=== PATIENT | male | born 1945 | race Caucasian/White ===

== ENCOUNTER → 2023-08-06 08:02 | Outpatient (REF) | payer MEDICARE, OTHER, SELFPAY ==
[2023-08-06 08:56] LABS: % Basophils 0.4 % (0-2); % Eosinophils 3.4 % (0-6); % Immature Granulocytes 0.4 % (0-0.5); % Lymphocytes 17.7 % (20.5-51.1); % Monocytes 8.6 % (1.7-9.3); % Neutrophils 69.5 % (42.2-75.2); Absolute Eosinophils 0.3 10^3/uL (0-0.7); Absolute Lymphocytes 1.5 10^3/uL (1.2-3.4); Absolute Monocytes 0.7 10^3/uL (0.1-0.6); Absolute Neutrophils 5.9 10^3/uL (1.4-6.5); Hematocrit 34.8 % (39.0-52.0); Hemoglobin 10.8 g/dL (13.0-18.0); Mean Corpuscular Hgb 28.3 pg (27.0-31.0); Mean Corpuscular Volume 91.1 fL (80.0-94.0); Mean Platelet Volume 10.1 fL (7.4-10.4); Nucleated Red Blood Cells % 0 % (-); Platelet Count 264 10^3/uL (130-400); Red Blood Cell Count 3.82 10^6/uL (4.70-6.10); Red Cell Dist. Width 14.8 % (11.5-14.5); White Blood Cell Count 8.4 10^3/uL (4.8-10.8)
[2023-08-06 09:09] LABS: ALT (SGPT) 15 U/L (0-50); AST (SGOT) 22 U/L (17-59); Alkaline Phosphatase 33 U/L (38-126); Blood Urea Nitrogen 26 mg/dl (9-20); Calcium 9.3 mg/dl (8.4-10.2); Carbon Dioxide 26 mmol/L (22-30); Chloride 103 mmol/L (98-107); Creatine Phosphokinase 88 U/L (55-170); Glucose 182 mg/dl (70-99); HDL Cholesterol 44 mg/dl; LDL Cholesterol, Calculated 80 mg/dl; Magnesium 1.8 mg/dl (1.6-2.3); Potassium 5.1 mmol/L (3.5-5.1); Sodium 138 mmol/L (135-145); Total Bilirubin 0.5 mg/dl (0.2-1.3); Total Cholesterol 154 mg/dl (50-199); Total Protein 6.9 g/dl (6.3-8.2); Triglyceride 153 mg/dl (10-149); Uric Acid 6.2 mg/dl (3.5-8.5); Very Low Density Lipoprotein 30 mg/dl (0-30); eGFR 47.06
[2023-08-06 09:38] LABS: Urine Albumin 1+ (Neg - Trace); Urine Bilirubin Negative (Negative); Urine Character Clear (Clear); Urine Color Yellow; Urine Glucose Negative (Negative); Urine Ketone Negative (Negative); Urine Leukocyte Negative (Negative); Urine Nitrite Negative (Negative); Urine Occult Blood Negative (Negative); Urine Specific Gravity 1.015 (<1.030); Urine Urobilinogen Negative (Neg - 1+)
[2023-08-06 09:45] LABS: Free T4 1.15 ng/dl (0.78-2.19)
[2023-08-06 09:59] LABS: PSA, Total - Screen 2.99 ng/ml (0.0-4.0); TSH 2.02 uIU/ml (0.47-4.68)
[2023-08-06 10:35] LABS: Folate 8.6 ng/ml (2.76-20); Vitamin B12 859 pg/ml (239-931)
[2023-08-06 11:07] LABS: Erythrocyte Sed Rate 41 mm/hour (0-20)
[2023-08-06 12:07] LABS: Urine Mucus Few
[2023-08-06 12:08] LABS: Urine Red Blood Cell 0-2 /HPF (0-2); Urine White Cell 0-2 /HPF (0-5)
[2023-08-06 12:30] LABS: Microalbumin, Random Urine 27.9 mg/dl (0.6-1.7); Microalbumin/creatinine Ratio 410.9 mg/g
[2023-08-06 12:49] LABS: Glycohemoglobin (HgbA1c) 6.7 % (4.0-5.6)
[2023-08-06 14:57] LABS: Rheumatoid Agglutinin Positive (<10 IU)
[2023-08-06 16:02] LABS: Rheumatoid Agg. Semi-quant 256 IU
== END ==
LOC: REG 08:02
PROVIDERS: ATTENDING PHYSICIAN Family Medicine
DX: E78.5 Hyperlipidemia, unspecified (principal); I10 Essential (primary) hypertension; E55.9 Vitamin D deficiency, unspecified; Z12.5 Encounter for screening for malignant neoplasm of prostate; E11.42 Type 2 diabetes mellitus with diabetic polyneuropathy; E07.9 Disorder of thyroid, unspecified; M54.50 Low back pain, unspecified; G89.29 Other chronic pain; E53.8 Deficiency of other specified B group vitamins
CPT/HCPCS: 36415; 80053; 80061; 81003; 81015; 82043; 82306; 82550; 82570; 82607; 82746; 83036; 83735; 84100; 84439; 84443; 84550; 85025; 85652; 86430; 86431; G0103

== ENCOUNTER → 2023-08-09 11:40 | Outpatient (REF) | payer MEDICARE, OTHER, SELFPAY | LOC: HWRAD 11:40 | PROVIDERS: ATTENDING PHYSICIAN Family Medicine | DX: R91.8 Other nonspecific abnormal finding of lung field (principal); M54.50 Low back pain, unspecified; K59.00 Constipation, unspecified | CPT/HCPCS: 71250; 72110; 72170; 74018 ==

== ENCOUNTER → 2023-09-25 07:47 | Outpatient (REF) | payer MEDICARE, OTHER, SELFPAY ==
[2023-09-25 09:44] LABS: ALT (SGPT) 13 U/L (0-50); AST (SGOT) 21 U/L (17-59); Albumin 4.1 g/dl (3.5-5.0); Alkaline Phosphatase 31 U/L (38-126); Blood Urea Nitrogen 26 mg/dl (9-20); Calcium 9.2 mg/dl (8.4-10.2); Carbon Dioxide 27 mmol/L (22-30); Chloride 101 mmol/L (98-107); Glucose 144 mg/dl (70-99); Potassium 5.4 mmol/L (3.5-5.1); Sodium 136 mmol/L (135-145); Total Bilirubin 0.8 mg/dl (0.2-1.3); Total Protein 6.7 g/dl (6.3-8.2); eGFR 51.13
[2023-09-25 09:46] LABS: Glycohemoglobin (HgbA1c) 6.6 % (4.0-5.6)
== END ==
LOC: REG 07:47
PROVIDERS: ATTENDING PHYSICIAN Internal Medicine Endocrinology, Diabetes & Metabolism; FAMILY PHYSICIAN Family Medicine
DX: E11.9 Type 2 diabetes mellitus without complications (principal)
CPT/HCPCS: 36415; 80053; 83036

== ENCOUNTER 2023-10-04 09:48 | Emergency (ER) | payer MEDICARE, OTHER, SELFPAY ==
--- NOTE | 2023-10-04 09:59 | ED.GENMED ---
History of Present Illness
General
Chief Complaint: Fall
Source: patient
Exam Limitations: none
Time Seen by Provider: 10/04/23 09:50
History of Present Illness
History of Present Illness:
See MDM
Past History
Past History
ED Past Medical History: HTN, [place] and Other (Back pain, neck pain, sciatica)
ED Past Surgical History: Orthopedic (Excision cyst left knee) and Other (Dental implants, sinus surgery)
Social History
Tobacco: Former smoker
Alcohol: None
Drug: None
Personal:
Living: with family
Employment: Retired
Family History
Family History: Other (Noncontributory)
Phy Exam
Physical Exam
Physical Exam:
See MDM
Course
Orders/Labs/Results
Orders:
Orders
10/04/23 09:54
Humerus, Left 2 Views [CR Humerus - Left Min 2 Views*] Urgent
Comment:
Reason For Exam: fall, mid arm pain
Lumbar Spine Complete, 4 View [CR Lumbar Spine Comp Min 4 Vw*] Urgent
Comment:
Reason For Exam: fall, low back pain
10/04/23 10:25
CT Head W/o Iv Contrast Urgent
Comment:
Reason For Exam: fall hit head. no thinners.
Vital Signs
Initial and Last Documented VS:
Initial Vital Signs
Temp Pulse Resp BP Pulse Ox
97.5 F 85 16 171/85 98
10/04/23 10:00 10/04/23 10:00 10/04/23 10:00 10/04/23 10:00 10/04/23 10:00
Last Documented Vital Signs
Temp Pulse Resp BP Pulse Ox
97.5 F 84 16 148/90 98
10/04/23 10:00 10/04/23 10:35 10/04/23 10:35 10/04/23 10:35 10/04/23 10:35
MDM/Problems Addressed
Differential Diagnosis Includes:
HPI and MDM Narrative:
77-year-old male presenting for evaluation after a fall. Patient states he has a known history of gait dysfunction and has been seeing physical therapy to help strengthen his core to avoid falling backwards. Patient states he thinks he tripped and
he fell on his left side hitting his left arm and his back. He denies head injury.
On exam, patient is well-appearing nontoxic. There is a small avulsion to the lateral aspect of his left arm. No bruising noted to his lumbar back. Hips nontender. No head injury noted. Will obtain x-rays of lumbar x-ray and left humerus
Physical exam
General: Well appearing and non-toxic
HEENT: protecting airway
Neck: supple
CV: No evidence of cyanosis
Resp: No accessory muscle use
Abd: Non-distended
Extremities: No bony tenderness to bilateral hips or pelvis
Back: Mild tenderness to lumbar region
Neuro: alert
Psych: Normal affect
Skin: Small abrasion to left lateral arm
Problems Addressed including Acute and Chronic Conditions affecting care:
1. Arm and back injury status post fall
Acuity: acute
Prognosis: stable
Details: Will obtain x-rays to rule out fracture. Patient already has a known history of ambulatory dysfunction
Updates
CT head negative. X-rays negative for trauma. Will update PCP and discharge
Differential Diagnosis (but not limited to): Humeral fracture, abrasion, contusion
Testing considered: Urinalysis but denies symptoms
Drug therapy (if applicable): OTC meds, please see d/c instruction regarding Rx drugs
Amount and/or Complexity of Data Reviewed
Clinical info obtained from: Patient
External data reviewed: N/A
Labs I independently reviewed (but not limited to): N/A
Radiology: The CT scan was personally and independently reviewed. In addition, official CT report reviewed.
X-ray independently reviewed: Humerus and lumbar x-ray negative for acute fracture
Pulse Ox: not hypoxic
EKG independently reviewed: N/A
Temporary Administrative Assistant: N/A
Critical Care: N/A
Risk of Complication:
Social Determinants of health: Good social support
Discussed with other providers: N/A
Escalation of Care includes Admit/Obs: After being observed in the Emergency Department, pt stable for discharge.
Occasional wrong word or 'sound a like' substitutions may have occurred due to the inherent limitations of voice recognition software. Read the chart carefully and recognize, using context, where substitutions have occurred.
*Critical Care Note
Total Time (30-74mins, 75-104mins- exclusive of procedures): Not Applicable
ED Attending Note
-
Portions of this chart may have been created with voice recognition software.� Occasional wrong word or��sound alike� substitutions may have occurred due to the inherent limitations of voice recognition software.
Discharge Plan
Departure
Patient Disposition: Home (Routine Discharge)
Date of Disposition: 10/04/23
Time of Disposition: 11:08
Patient with high blood pressure during this ER visit?: Yes
Discharge Problem:
Fall
Instructions: BLOOD PRESSURE
Prescriptions:
No Action
tamsulosin 0.4 MG capsule
0.4 mg PO QPM
finasteride 5 MG tablet
5 mg PO QPM
eplerenone 25 MG tablet
25 mg PO Q12
insulin aspart U-100 [Novolog FlexPen U-100 Insulin] 300 UNITS/3 ML insulin pen
15 units SC 1730
Patient Comments:
with dinner
insulin aspart U-100 [Novolog FlexPen U-100 Insulin] 300 UNITS/3 ML insulin pen
10 units SC BID@0730,1230
Patient Comments:
with breakfast and lunch
insulin glargine [Lantus Solostar U-100 Insulin] 300 UNITS/3 ML insulin pen
18 units SC HS
metoprolol tartrate 50 MG tablet
50 mg PO BID
cetirizine [Zyrtec] 10 MG tablet
10 mg PO PRN PRN (Reason: allergies)
pravastatin 10 MG tablet
20 mg PO QPM
magnesium 200 mg Tablet
400 mg PO DAILY
mecobalamin (vitamin B12) [B12 Active] 1,000 mcg Tablet,Chewable
1,000 mcg PO DAILY
chlorthalidone 25 mg Tablet
25 mg PO DAILY
pantoprazole [Protonix] 40 mg Tablet,Delayed Release (Dr/Ec)
40 mg PO DAILY
ranolazine [Ranexa] 1,000 mg Tablet Extended Release 12 Hr
1,000 mg PO BID
docusate sodium [Colace] 100 mg Capsule
100 mg PO DAILY
melatonin 5 mg Tablet
5 mg PO HS PRN (Reason: insomnia)
aspirin 81 mg capsule
81 mg PO DAILY Qty: 1 0RF
Rx Instructions:
Take daily post Watchman
Eliquis 2.5 mg tablet
2.5 mg PO BID Qty: 60 5RF
Rx Instructions:
Please note lower dose!
metformin 1,000 MG tablet
1,000 mg PO BID
cholecalciferol (vitamin D3) [Vitamin D3] 25 mcg (1,000 unit) Tablet
75 mcg PO DAILY
Referrals:
Deandre Lopez DO [Family Provider] -
Activity Restrictions/Additional Instructions:
Please return for any worsening symptoms.
You may return at any time if you have further concerns.
Please follow up with your doctor at the first available appointment, preferably this week.
Thank you for choosing [facility].
Interventions
Interventions:
*Risk Screen - Suicide Last Done: 10/04/23 10:01
*General Assessment Last Done: 10/04/23 09:56
*Neglect/Abuse Screening Last Done: 10/04/23 09:56
ED- Fall Risk Assessment Last Done: 10/04/23 09:56
*ED COVID-19 Vaccine History Last Done: 10/04/23 09:56
ED-Musculoskeletal Assessment Last Done: 10/04/23 10:01
ED- Neurological Assessment Last Done: 10/04/23 10:01
ED-Skin Assessment Last Done: 10/04/23 10:01
Discharge Date and Time
Print Language: JAPANESE
[2023-10-04 10:00] VITALS: BP 171/85
[2023-10-04 10:03] VITALS: BMI 30.5
[2023-10-04 10:35] VITALS: BP 148/90
== END 2023-10-04 11:54 | disposition home or self-care (01) ==
LOC: EMR 09:48
PROVIDERS: EMERGENCY PHYSICIAN Student in an Organized Health Care Education/Training Program; FAMILY PHYSICIAN Family Medicine
DX: S41.102A Unspecified open wound of left upper arm, initial encounter (principal); W19.XXXA Unspecified fall, initial encounter; I10 Essential (primary) hypertension; Z87.891 Personal history of nicotine dependence
CPT/HCPCS: 99284; 70450; 72110; 73060

== ENCOUNTER → 2023-10-22 08:47 | Outpatient (REF) | payer MEDICARE, OTHER, SELFPAY | LOC: DHVS 08:47 | PROVIDERS: ATTENDING PHYSICIAN Surgery Vascular Surgery; FAMILY PHYSICIAN Family Medicine | DX: I73.9 Peripheral vascular disease, unspecified (principal); I77.1 Stricture of artery | CPT/HCPCS: 93922; 93923; 93925; 93930 ==

== ENCOUNTER → 2023-11-02 07:45 | Outpatient (REF) | payer MEDICARE, OTHER, SELFPAY ==
[2023-11-02 09:03] LABS: % Basophils 0.5 % (0-2); % Eosinophils 3.9 % (0-6); % Immature Granulocytes 0.6 % (0-0.5); % Lymphocytes 18.9 % (20.5-51.1); % Neutrophils 66.1 % (42.2-75.2); Absolute Eosinophils 0.3 10^3/uL (0-0.7); Absolute Immature Granulocytes 0.1 10^3/uL (0-0.05); Absolute Lymphocytes 1.7 10^3/uL (1.2-3.4); Absolute Monocytes 0.9 10^3/uL (0.1-0.6); Absolute Neutrophils 5.9 10^3/uL (1.4-6.5); Hematocrit 31.5 % (39.0-52.0); Hemoglobin 10.4 g/dL (13.0-18.0); Mean Corpuscular Hgb 29.5 pg (27.0-31.0); Mean Corpuscular Volume 89.2 fL (80.0-94.0); Mean Platelet Volume 10.3 fL (7.4-10.4); Nucleated Red Blood Cells % 0 % (-); Platelet Count 235 10^3/uL (130-400); Red Blood Cell Count 3.53 10^6/uL (4.70-6.10); White Blood Cell Count 8.8 10^3/uL (4.8-10.8)
[2023-11-02 09:29] LABS: Microalbumin, Random Urine 18.7 mg/dl (0.6-1.7); Microalbumin/creatinine Ratio 358.2 mg/g
[2023-11-02 09:30] LABS: ALT (SGPT) 13 U/L (0-50); AST (SGOT) 21 U/L (17-59); Albumin 3.8 g/dl (3.5-5.0); Alkaline Phosphatase 31 U/L (38-126); Blood Urea Nitrogen 28 mg/dl (9-20); Calcium 9.1 mg/dl (8.4-10.2); Carbon Dioxide 27 mmol/L (22-30); Chloride 99 mmol/L (98-107); Glucose 197 mg/dl (70-99); HDL Cholesterol 41 mg/dl; LDL Cholesterol, Calculated 45 mg/dl; Potassium 5.4 mmol/L (3.5-5.1); Sodium 133 mmol/L (135-145); Total Bilirubin 0.5 mg/dl (0.2-1.3); Total Cholesterol 105 mg/dl (50-199); Total Protein 6.3 g/dl (6.3-8.2); Triglyceride 99 mg/dl (10-149); Very Low Density Lipoprotein 19 mg/dl (0-30); eGFR 51.13
[2023-11-02 09:55] LABS: Erythrocyte Sed Rate 38 mm/hour (0-20)
[2023-11-02 10:00] LABS: Cortisol, Random 18.7 ug/dl
[2023-11-02 10:36] LABS: Folate 7.2 ng/ml (2.76-20); Vitamin B12 760 pg/ml (239-931)
[2023-11-02 12:11] LABS: Glycohemoglobin (HgbA1c) 6.7 % (4.0-5.6)
== END ==
LOC: REG 07:45
PROVIDERS: ATTENDING PHYSICIAN Family Medicine; OTHER PHYSICIAN Internal Medicine Endocrinology, Diabetes & Metabolism; REFERRING PHYSICIAN Psychiatry & Neurology Neurology
DX: E53.8 Deficiency of other specified B group vitamins (principal); R29.6 Repeated falls; E78.5 Hyperlipidemia, unspecified; I10 Essential (primary) hypertension; E11.42 Type 2 diabetes mellitus with diabetic polyneuropathy
CPT/HCPCS: 36415; 80053; 80061; 82043; 82533; 82570; 82607; 82746; 83036; 85025; 85652

== ENCOUNTER → 2023-12-17 13:31 | Outpatient (REF) | payer MEDICARE, OTHER, SELFPAY | LOC: RCS 13:31 | PROVIDERS: ATTENDING PHYSICIAN Internal Medicine Cardiovascular Disease; FAMILY PHYSICIAN Family Medicine | DX: I10 Essential (primary) hypertension (principal); I95.1 Orthostatic hypotension | CPT/HCPCS: 93306; 93356 ==

== ENCOUNTER → 2024-03-17 07:47 | Outpatient (REF) | payer MEDICARE, OTHER, SELFPAY ==
[2024-03-17 09:20] LABS: % Basophils 0.4 % (0-2); % Eosinophils 4.5 % (0-6); % Immature Granulocytes 0.6 % (0-0.5); % Lymphocytes 19.5 % (20.5-51.1); % Monocytes 9.1 % (1.7-9.3); % Neutrophils 65.9 % (42.2-75.2); Absolute Eosinophils 0.4 10^3/uL (0-0.7); Absolute Immature Granulocytes 0.1 10^3/uL (0-0.05); Absolute Lymphocytes 1.6 10^3/uL (1.2-3.4); Absolute Monocytes 0.7 10^3/uL (0.1-0.6); Absolute Neutrophils 5.4 10^3/uL (1.4-6.5); Hematocrit 32.3 % (39.0-52.0); Hemoglobin 10.5 g/dL (13.0-18.0); Mean Corp Hgb Conc. 32.5 g/dL (33.0-37.0); Mean Corpuscular Hgb 29.4 pg (27.0-31.0); Mean Corpuscular Volume 90.5 fL (80.0-94.0); Mean Platelet Volume 10.2 fL (7.4-10.4); Nucleated Red Blood Cells % 0 % (-); Platelet Count 222 10^3/uL (130-400); Red Blood Cell Count 3.57 10^6/uL (4.70-6.10); Red Cell Dist. Width 14.6 % (11.5-14.5); White Blood Cell Count 8.2 10^3/uL (4.8-10.8)
[2024-03-17 09:31] LABS: ALT (SGPT) 15 U/L (0-50); AST (SGOT) 23 U/L (17-59); Alkaline Phosphatase 23 U/L (38-126); Blood Urea Nitrogen 24 mg/dl (9-20); Calcium 9.3 mg/dl (8.4-10.2); Carbon Dioxide 27 mmol/L (22-30); Chloride 101 mmol/L (98-107); Creatine Phosphokinase 83 U/L (55-170); Direct Bilirubin 0.1 mg/dl (0.0-0.4); GGTP 15 U/L (15-73); Glucose 143 mg/dl (70-99); HDL Cholesterol 45 mg/dl; LDL Cholesterol, Calculated 63 mg/dl; Potassium 5.5 mmol/L (3.5-5.1); Sodium 135 mmol/L (135-145); Total Bilirubin 0.6 mg/dl (0.2-1.3); Total Cholesterol 132 mg/dl (50-199); Total Protein 6.6 g/dl (6.3-8.2); Triglyceride 120 mg/dl (10-149); Very Low Density Lipoprotein 24 mg/dl (0-30); eGFR 55.53
[2024-03-17 09:43] LABS: Vitamin D, 25-OH*** 45.1 ng/mL (30-80)
[2024-03-17 10:16] LABS: Vitamin B12 691 pg/ml (239-931)
[2024-03-17 10:19] LABS: Glycohemoglobin (HgbA1c) 6.4 % (4.0-5.6)
[2024-03-17 11:35] LABS: Microalbumin, Random Urine 23.8 mg/dl (0.6-1.7)
== END ==
LOC: REG 07:47
PROVIDERS: ATTENDING PHYSICIAN Family Medicine; REFERRING PHYSICIAN Internal Medicine Endocrinology, Diabetes & Metabolism
DX: E53.8 Deficiency of other specified B group vitamins (principal); E55.9 Vitamin D deficiency, unspecified; E78.5 Hyperlipidemia, unspecified; E11.9 Type 2 diabetes mellitus without complications; I65.22 Occlusion and stenosis of left carotid artery
CPT/HCPCS: 36415; 80053; 80061; 82043; 82248; 82306; 82550; 82607; 82977; 83036; 85025

== ENCOUNTER → 2024-05-12 07:44 | Outpatient (REF) | payer MEDICARE, OTHER, SELFPAY ==
[2024-05-12 09:17] LABS: ALT (SGPT) 15 U/L (0-50); AST (SGOT) 20 U/L (17-59); Albumin 3.8 g/dl (3.5-5.0); Alkaline Phosphatase 33 U/L (38-126); Blood Urea Nitrogen 24 mg/dl (9-20); Calcium 9.5 mg/dl (8.4-10.2); Carbon Dioxide 27 mmol/L (22-30); Chloride 102 mmol/L (98-107); Glucose 162 mg/dl (70-99); Potassium 5.2 mmol/L (3.5-5.1); Sodium 137 mmol/L (135-145); Total Bilirubin 0.7 mg/dl (0.2-1.3); Total Protein 6.5 g/dl (6.3-8.2); eGFR 55.53
== END ==
LOC: REG 07:44
PROVIDERS: ATTENDING PHYSICIAN Specialist; FAMILY PHYSICIAN Family Medicine
DX: I10 Essential (primary) hypertension (principal); E11.42 Type 2 diabetes mellitus with diabetic polyneuropathy; E26.9 Hyperaldosteronism, unspecified
CPT/HCPCS: 36415; 80053

== ENCOUNTER → 2024-06-30 08:29 | Outpatient (REF) | payer MEDICARE, OTHER, SELFPAY ==
[2024-06-30 10:43] LABS: PSA, Total - Diagnostic 2.28 ng/ml (0.0-4.0)
== END ==
LOC: REG 08:29
PROVIDERS: ATTENDING PHYSICIAN Specialist; FAMILY PHYSICIAN Family Medicine
DX: R97.20 Elevated prostate specific antigen [PSA] (principal)
CPT/HCPCS: 36415; 84153

== ENCOUNTER → 2024-09-22 08:07 | Outpatient (REF) | payer MEDICARE, OTHER, SELFPAY ==
[2024-09-22 09:54] LABS: ALT (SGPT) 14 U/L (0-50); AST (SGOT) 18 U/L (17-59); Albumin 4.1 g/dl (3.5-5.0); Alkaline Phosphatase 26 U/L (38-126); Blood Urea Nitrogen 26 mg/dl (9-20); Calcium 8.9 mg/dl (8.4-10.2); Carbon Dioxide 24 mmol/L (22-30); Chloride 105 mmol/L (98-107); Glucose 175 mg/dl (70-99); Potassium 5.4 mmol/L (3.5-5.1); Sodium 138 mmol/L (135-145); Total Protein 6.7 g/dl (6.3-8.2); eGFR 50.81
[2024-09-22 10:19] LABS: Glycohemoglobin (HgbA1c) 6.0 % (4.0-5.6)
== END ==
LOC: REG 08:07
PROVIDERS: ATTENDING PHYSICIAN Internal Medicine Endocrinology, Diabetes & Metabolism; FAMILY PHYSICIAN Family Medicine
DX: E11.9 Type 2 diabetes mellitus without complications (principal); E16.2 Hypoglycemia, unspecified
CPT/HCPCS: 36415; 80053; 83036

== ENCOUNTER → 2024-10-21 09:46 | Outpatient (REF) | payer MEDICARE, OTHER, SELFPAY | LOC: RAD 09:46 | PROVIDERS: ATTENDING PHYSICIAN Surgery Vascular Surgery; FAMILY PHYSICIAN Family Medicine | DX: I77.1 Stricture of artery (principal); I65.22 Occlusion and stenosis of left carotid artery; I73.9 Peripheral vascular disease, unspecified | CPT/HCPCS: 93880; 93922; 93923; 93925; 93930 ==

== ENCOUNTER → 2025-02-25 08:38 | Outpatient (REF) | payer MEDICARE, OTHER, SELFPAY ==
[2025-02-25 10:23] LABS: Hematocrit 30.9 % (39.0-52.0); Hemoglobin 9.9 g/dL (13.0-18.0); Mean Corp Hgb Conc. 32.0 g/dL (33.0-37.0); Mean Corpuscular Volume 92.0 fL (80.0-94.0); Nucleated Red Blood Cells % 0 % (-); Platelet Count 246 10^3/uL (130-400); Red Cell Dist. Width 15.1 % (11.5-14.5); Reticulocyte Count 2.4 % (0.4-2.8)
[2025-02-25 10:43] LABS: Urine Character Clear (Clear)
[2025-02-25 11:17] LABS: ALT (SGPT) 14 U/L (0-50); AST (SGOT) 20 U/L (17-59); Albumin 4.1 g/dl (3.5-5.0); Alkaline Phosphatase 29 U/L (38-126); Blood Urea Nitrogen 26 mg/dl (9-20); Calcium 9.0 mg/dl (8.4-10.2); Carbon Dioxide 26 mmol/L (22-30); Chloride 104 mmol/L (98-107); Glucose 162 mg/dl (70-99); HDL Cholesterol 46 mg/dl; LDL Cholesterol, Calculated 42 mg/dl; Magnesium 1.9 mg/dl (1.6-2.3); Potassium 5.3 mmol/L (3.5-5.1); Sodium 135 mmol/L (135-145); Total Protein 7.1 g/dl (6.3-8.2); Uric Acid 5.5 mg/dl (3.5-8.5); Very Low Density Lipoprotein 24 mg/dl (0-30); eGFR 55.19
[2025-02-25 11:37] LABS: Urine Squamous Cell 16-20 /LPF (Few); Urine Urothelial Cell 0-2 /LPF (FEW)
[2025-02-25 11:38] LABS: Urine Red Blood Cell 0-2 /HPF (0-2); Urine White Cell 0-2 /HPF (0-5)
[2025-02-25 11:39] LABS: TSH 1.41 uIU/ml (0.47-4.68)
[2025-02-25 11:43] LABS: Glycohemoglobin (HgbA1c) 6.3 % (4.0-5.9)
[2025-02-25 16:29] LABS: Microalb - Urine Creatinine 57.900 mg/dl
[2025-02-25 16:43] LABS: PSA, Total - Screen 2.45 ng/ml (0.0-4.0)
[2025-02-25 17:04] LABS: Microalbumin, Random Urine 34.1 mg/dl (0.6-1.7)
[2025-02-27 22:20] LABS: Mitochondrial M2 Ab, IgG 10.0 Units (0.0-24.9)
== END ==
LOC: REG 08:38
PROVIDERS: ATTENDING PHYSICIAN Family Medicine; OTHER PHYSICIAN Internal Medicine Cardiovascular Disease; OTHER PHYSICIAN Internal Medicine Endocrinology, Diabetes & Metabolism
DX: Z00.00 Encounter for general adult medical examination without abnormal findings (principal); I95.9 Hypotension, unspecified; E11.42 Type 2 diabetes mellitus with diabetic polyneuropathy; I10 Essential (primary) hypertension; E78.5 Hyperlipidemia, unspecified; R76.89 Other specified abnormal immunological findings in serum; Z12.5 Encounter for screening for malignant neoplasm of prostate; E11.9 Type 2 diabetes mellitus without complications; E16.2 Hypoglycemia, unspecified; R91.8 Other nonspecific abnormal finding of lung field
CPT/HCPCS: 36415; 71046; 80053; 80061; 81003; 81015; 82043; 82570; 83036; 83735; 84100; 84439; 84443; 84550; 85025; 85045; 86015; 86381; G0103

== ENCOUNTER 2025-02-26 11:03 | Emergency (ER) | payer MEDICARE, OTHER, SELFPAY ==
[2025-02-26 11:07] VITALS: BP 126/56
--- NOTE | 2025-02-26 12:06 | ED.GENMED ---
History of Present Illness
<SUKHDEEP Rios - Last Filed: 02/27/25 08:56>
General
Chief Complaint: Abnormal Lab Value
Source: patient
Exam Limitations: none
Time Seen by Provider: 02/26/25 12:05
Nursing documentation reviewed up to this point in time: agreed with
History of Present Illness
History of Present Illness:
Patient is 79-year-old male with past medical history of A-fib with Watchman procedure no longer on blood thinners ) on ASA, diabetes, balance issues sent to the ER by physician for reevaluation of low hemoglobin. Patient's outpatient hemoglobin
was apparently 9.5 and he was sent to the ER by his family doctor. Patient has no complaints. He does have balance issues and has a history of frequent falls. reports patient fell about 10 days ago and did hit his head and hit his left back
area. Patient denies loss of consciousness at that time. No headache nausea vomiting. His left lower back pain is actually improving since the injury. Now feels more of a dull ache. Patient's hemoglobin yesterday was 9.9 and in 2023 was 10.5.
Patient denies any weakness lightheadedness dizziness chest pain at rest. Patient denies any black or dark stools.
Past History
<SUKHDEEP Rios - Last Filed: 02/27/25 08:56>
Past History
ED Past Medical History: HTN, [place] and Other (Back pain, neck pain, sciatica)
ED Past Surgical History: Orthopedic (Excision cyst left knee) and Other (Dental implants, sinus surgery)
Social History
Tobacco: Former smoker
Alcohol: None
Drug: None
Personal:
Living: with family
Employment: Retired
Family History
Family History: Other (Noncontributory)
Phy Exam
<SUKHDEEP Rios - Last Filed: 02/27/25 08:56>
General Physical Exam
General Presentation: no apparent distress
General age: appears stated age
General Skin: warm and dry
General Habitus: normal
General Mental: alert
General Hydration: appears well hydrated
Cardiovascular Exam
Cardiovascular Exam: regular rate/rhythm, no murmur and normal peripheral pulses
Pulmonary Exam
Pulmonary Exam: lungs clear and no respiratory distress
Neurological Exam
Neurological Exam: alert and oriented x3
Musculoskeletal Exam
Musculoskeletal Exam: other (Left lower paralumbar region for area of redness no bony midline tenderness is mildly tender to left lateral lumbar region)
Skin Exam
Skin Exam: normal color and warm/dry
Psychiatric Exam
Psychiatric Exam: normal mood/affect
Course
<SUKHDEEP Rios - Last Filed: 02/27/25 08:56>
Orders/Labs/Results
Orders:
Orders
02/26/25 13:02
CT Cervical Spine W/o Iv Contr Urgent
Comment:
Reason For Exam: trauma
CT Chest/abd/pel W Iv Cont Urgent
Comment:
Reason For Exam: trauma
CT Head W/o Iv Contrast Urgent
Comment:
Reason For Exam: trauma
02/26/25 13:03
IV Insert/Care/Rem.- Treatment PRN
0.9% Sodium Chloride 500 ml [Nss] 500 ml IV BOLUS
02/26/25 13:20
Complete Blood Count/With Diff Urgent
Comprehensive Metabolic Panel Urgent
Abnormal Lab Results
02/26/25
13:20
RBC 3.20 L 10^6/uL
(4.70-6.10)
Hgb 9.1 L g/dL
(13.0-18.0)
Hct 28.4 L %
(39.0-52.0)
MCHC 32.0 L g/dL
(33.0-37.0)
RDW 14.8 H %
(11.5-14.5)
Absolute Lymphs (auto) 1.1 L 10^3/uL
(1.2-3.4)
Absolute Monos (auto) 0.8 H 10^3/uL
(0.1-0.6)
Lymphocytes % 14.5 L %
(20.5-51.1)
Monocytes % 10.0 H %
(1.7-9.3)
Sodium 133 L mmol/L
(135-145)
Carbon Dioxide 21 L mmol/L
(22-30)
BUN 28 H mg/dl
(9-20)
Glucose 164 H mg/dl
(70-99)
Alkaline Phosphatase 30 L U/L
(38-126)
02/26/25 13:20
02/26/25 13:20
Vital Signs
Initial and Last Documented VS:
Initial Vital Signs
Temp Pulse Resp BP Pulse Ox
97.4 F 88 20 126/56 99
02/26/25 11:07 02/26/25 11:07 02/26/25 11:07 02/26/25 11:07 02/26/25 11:07
Last Documented Vital Signs
Temp Pulse Resp BP Pulse Ox
97.4 F 65 16 154/60 96
02/26/25 11:07 02/26/25 15:14 02/26/25 15:14 02/26/25 15:29 02/26/25 15:14
Technical Specialist Cytology consulted with Physician
Technical Specialist Cytology consulted with physician?: Yes
Name of Physician Consulted: davie
<Lance Kelley MD - Last Filed: 02/26/25 15:21>
Orders/Labs/Results
Orders:
Orders
02/26/25 13:02
CT Cervical Spine W/o Iv Contr Urgent
Comment:
Reason For Exam: trauma
CT Chest/abd/pel W Iv Cont Urgent
Comment:
Reason For Exam: trauma
CT Head W/o Iv Contrast Urgent
Comment:
Reason For Exam: trauma
02/26/25 13:03
IV Insert/Care/Rem.- Treatment PRN
0.9% Sodium Chloride 500 ml [Nss] 500 ml IV BOLUS
02/26/25 13:20
Complete Blood Count/With Diff Urgent
Comprehensive Metabolic Panel Urgent
Abnormal Lab Results
02/26/25
13:20
RBC 3.20 L 10^6/uL
(4.70-6.10)
Hgb 9.1 L g/dL
(13.0-18.0)
Hct 28.4 L %
(39.0-52.0)
MCHC 32.0 L g/dL
(33.0-37.0)
RDW 14.8 H %
(11.5-14.5)
Absolute Lymphs (auto) 1.1 L 10^3/uL
(1.2-3.4)
Absolute Monos (auto) 0.8 H 10^3/uL
(0.1-0.6)
Lymphocytes % 14.5 L %
(20.5-51.1)
Monocytes % 10.0 H %
(1.7-9.3)
Sodium 133 L mmol/L
(135-145)
Carbon Dioxide 21 L mmol/L
(22-30)
BUN 28 H mg/dl
(9-20)
Glucose 164 H mg/dl
(70-99)
Alkaline Phosphatase 30 L U/L
(38-126)
02/26/25 13:20
02/26/25 13:20
Vital Signs
Initial and Last Documented VS:
Initial Vital Signs
Temp Pulse Resp BP Pulse Ox
97.4 F 88 20 126/56 99
02/26/25 11:07 02/26/25 11:07 02/26/25 11:07 02/26/25 11:07 02/26/25 11:07
Last Documented Vital Signs
Temp Pulse Resp BP Pulse Ox
97.4 F 65 16 154/60 96
02/26/25 11:07 02/26/25 15:14 02/26/25 15:14 02/26/25 15:29 02/26/25 15:14
<SUKHDEEP Rios - Last Filed: 02/27/25 08:56>
MDM/Problems Addressed
Differential Diagnosis Includes:
Not limited to anemia GI bleed less likely intracranial hemorrhage retroperitoneal hemorrhage or abdominal trauma, contusion
MDM/Problems Addressed:
As documented patient is a 79-year-old male that was sent by his family doctor for decreased hemoglobin. Patient had outpatient hemoglobin done yesterday which was around 9.9 and patient was sent to the ER. Patient had no complaint of black or
dark stools. Rectal exam Brown stool heme-negative. Patient did fall 2 weeks ago and struck his left flank and head. Patient presents awake alert no acute distress hemoglobin today is 9.1 it was 9.5 yesterday and in 2023 baseline hemoglobin was
in the 10s.
CAT scans of head chest cervical spine all negative. Patient stable for discharge with outpatient follow-up
<SUKHDEEP Rios - Last Filed: 02/27/25 08:56>
*Radiology
Radiology exam reviewed: radiology read reviewed
*Pulse Oximetry
SaO2: 99
Oxygen Mode of Delivery: Room air
Patient hypoxic: no
*Critical Care Note
Total Time (30-74mins, 75-104mins- exclusive of procedures): Not Applicable
ED Attending Note
<SUKHDEEP Rios - Last Filed: 02/27/25 08:56>
-
Portions of this chart may have been created with voice recognition software.� Occasional wrong word or��sound alike� substitutions may have occurred due to the inherent limitations of voice recognition software.
<Lance Kelley MD - Last Filed: 02/26/25 15:21>
ED Attending Note
Patient seen and examined by attending physician: Yes
ED Attending Note:
I have seen and evaluated the patient with a [id number] encounter. I have spoken to the advance practicer provider and involved in the medical history, the physical exam, medical decision making.
Evaluation and management service: agree unless noted differently below.
Results interpretation: agree unless noted differently below.
Focused HPI: 79-year-old male with history as noted presents for evaluation of anemia and recent fall. Patient reports that he had outpatient lab work through his primary care doctor that showed anemia�apparently this finding in the setting of a
recent fall last week prompted referral to the ER to be evaluated to rule out any traumatic injury that may have caused bleeding. He reports that last week he had a fall when he was getting up to go to the bathroom�he says that he slipped and fell
down but was able to get up and then lost his balance and fell forward. He says that he has had some mild but generally improving pain in his left low back since but no other serious injuries. He otherwise has been feeling generally well. He has
not had any rectal bleeding, hematuria or any other bleeding. He is on aspirin but no other blood thinners.
Physical exam: Awake and alert, nontoxic. Mildly hypertensive but heart rate in the 60s, rest of vitals are all normal. He has no signs of trauma to head. No tenderness in the cervical, thoracic, lumbar spine. He does have some mild tenderness
in the musculature of the left lumbar region. No abrasions or ecchymosis. No chest wall or abdominal tenderness. Minor abrasion to the right lateral upper arm which is well-healing without signs of infection; otherwise atraumatic extremities and
he moves all extremities freely without pain. Rectal exam Hemoccult negative per nurse practitioner exam.
Medical Decision Makin-year-old male presents for evaluation of anemia in the setting of a recent fall. Labs here confirm anemia at 9.1 but this looks essentially stable from most recent values�he has had a steadily declining hemoglobin for
years it appears. He was sent for CT head, cervical spine, chest/abdomen/pelvis which showed no acute posttraumatic injuries. Stable for discharge�discussed with the patient's PCP for outpatient follow-up of his anemia. I explained to the patient
he will need further workup for this. Provided a copy of all results for follow-up. All questions answered.
Discharge Plan
Departure
Patient Disposition: Home (Routine Discharge)
Date of Disposition: 02/26/25
Time of Disposition: 15:18
Patient with high blood pressure during this ER visit?: Yes
Discharge Problem:
Anemia, Falls, Low back strain
Instructions: Anemia overview, Low back pain - ED (DC)
Prescriptions:
No Action
tamsulosin 0.4 MG capsule
0.4 mg PO QPM
finasteride 5 MG tablet
5 mg PO QPM
eplerenone 25 MG tablet
25 mg PO Q12
insulin aspart U-100 [Novolog FlexPen U-100 Insulin] 300 UNITS/3 ML insulin pen
15 units SC 1730
Patient Comments:
with dinner
insulin aspart U-100 [Novolog FlexPen U-100 Insulin] 300 UNITS/3 ML insulin pen
10 units SC BID@0730,1230
Patient Comments:
with breakfast and lunch
insulin glargine [Lantus Solostar U-100 Insulin] 300 UNITS/3 ML insulin pen
18 units SC HS
metoprolol tartrate 50 MG tablet
50 mg PO BID
cetirizine [Zyrtec] 10 MG tablet
10 mg PO PRN PRN (Reason: allergies)
pravastatin 10 MG tablet
20 mg PO QPM
magnesium 200 mg Tablet
400 mg PO DAILY
mecobalamin (vitamin B12) [B12 Active] 1,000 mcg Tablet,Chewable
1,000 mcg PO DAILY
chlorthalidone 25 mg Tablet
25 mg PO DAILY
pantoprazole [Protonix] 40 mg Tablet,Delayed Release (Dr/Ec)
40 mg PO DAILY
ranolazine [Ranexa] 1,000 mg Tablet Extended Release 12 Hr
1,000 mg PO BID
docusate sodium [Colace] 100 mg Capsule
100 mg PO DAILY
melatonin 5 mg Tablet
5 mg PO HS PRN (Reason: insomnia)
aspirin 81 mg capsule
81 mg PO DAILY Qty: 1 0RF
Rx Instructions:
Take daily post Watchman
Eliquis 2.5 mg tablet
2.5 mg PO BID Qty: 60 5RF
Rx Instructions:
Please note lower dose!
metformin 1,000 MG tablet
1,000 mg PO BID
cholecalciferol (vitamin D3) [Vitamin D3] 25 mcg (1,000 unit) Tablet
75 mcg PO DAILY
Referrals:
Deandre Lopez DO [Family Provider, Family Practice] - Follow up in 5-7 days
Activity Restrictions/Additional Instructions:
Thank you for visiting the Emergency Department at [facility].
1. Please schedule a follow up appointment as directed. Call first thing tomorrow morning to make an appointment.
2. If indicated, please take your medications as instructed and indicated on discharge paperwork.
3. If any of your symptoms do not improve, or persist, or become more severe within 6-12 hours, please return to the emergency department for further care.
4. Please return to the emergency department if you develop a headache, neck pain/stiffness, fever greater than 100.4F, chest pain, shortness of breath, persistent nausea, vomiting, slurred speech, difficulty walking, numbness/tingling, weakness,
signs of infection or any other symptoms that are worrisome to you.
Please call [phone] if you have any questions.
Interventions
Interventions:
*Risk Screen - Suicide Last Done: 02/26/25 11:07
*General Assessment Last Done: 02/26/25 12:14
*Neglect/Abuse Screening Last Done: 02/26/25 11:07
*ED COVID-19 Vaccine History Last Done: 02/26/25 12:14
*ED Influenza Vaccine History Last Done: 02/26/25 12:14
[facility] Fall Risk Assessment Tool Last Done: 02/26/25 12:13
*Nursing Disposition Last Done: 02/26/25 15:32
Discharge Date and Time
Discharge Date/Time: 02/26/25 15:39
Print Language: TURKMEN
[2025-02-26 13:00] VITALS: BP 150/55
[2025-02-26 13:01] VITALS: BP 150/55
[2025-02-26] MEDS: NSS 500 IV (13:22)
[2025-02-26 13:26] LABS: Hematocrit 28.4 % (39.0-52.0); Hemoglobin 9.1 g/dL (13.0-18.0); Mean Corp Hgb Conc. 32.0 g/dL (33.0-37.0); Mean Corpuscular Volume 88.8 fL (80.0-94.0); Nucleated Red Blood Cells % 0 % (-); Platelet Count 209 10^3/uL (130-400); Red Cell Dist. Width 14.8 % (11.5-14.5)
[2025-02-26 13:39] LABS: ALT (SGPT) 15 U/L (0-50); AST (SGOT) 24 U/L (17-59); Albumin 4.0 g/dl (3.5-5.0); Alkaline Phosphatase 30 U/L (38-126); Blood Urea Nitrogen 28 mg/dl (9-20); Calcium 8.7 mg/dl (8.4-10.2); Carbon Dioxide 21 mmol/L (22-30); Chloride 104 mmol/L (98-107); Glucose 164 mg/dl (70-99); Potassium 5.1 mmol/L (3.5-5.1); Sodium 133 mmol/L (135-145); Total Protein 6.6 g/dl (6.3-8.2); eGFR 55.19
[2025-02-26 15:29] VITALS: BP 154/60
== END 2025-02-26 15:39 | disposition home or self-care (01) ==
LOC: EMR 11:03
PROVIDERS: Nurse Practitioner; EMERGENCY PHYSICIAN Emergency Medicine; FAMILY PHYSICIAN Family Medicine
DX: D64.9 Anemia, unspecified (principal); S39.012A Strain of muscle, fascia and tendon of lower back, initial encounter; W01.0XXA Fall on same level from slipping, tripping and stumbling without subsequent striking against object, initial encounter; Z91.81 History of falling; I48.91 Unspecified atrial fibrillation; I10 Essential (primary) hypertension; I25.2 Old myocardial infarction; Z79.82 Long term (current) use of aspirin; Z87.891 Personal history of nicotine dependence
CPT/HCPCS: 96360; 99284; 36415; 70450; 71260; 72125; 74177; 80053; 85025; 85045; Q9967